=== PATIENT | male | born 1945 | race African-American/Black ===

== ENCOUNTER 2020-05-13 06:47 | Inpatient (IN) | payer OTHER ==
[2020-05-13] MEDS ORDERED: SODIUM CHLORIDE 2,585 ML IV ONE (07:27)
[2020-05-13] MEDS ORDERED: ACETAMINOPHEN 1000 MG/100 ML VIAL (NON FORMULARY) IVPB ONE (07:39)
[2020-05-13] MEDS ORDERED: ACETAMINOPHEN INJECTION 100 ML IVPB ONE (08:10)
[2020-05-13 08:58] LABS: BASO % 0.8 % (0-2.0); HEMATOCRIT 37.5 % (35.4-49); HEMOGLOBIN 12.5 GM/dL (11.7-16.9); MCHC 33.4 g/dl (32.0-35.9); MEAN CELL VOLUME 92.9 fl (80-96); MEAN PLT VOLUME 8.3 fl (7.5-11.1); MONO % 6.6 % (3.8-10.2); NEUT % 87.6 % (42.8-82.8); PLATELET COUNT 469 K/MM3 (134-434); RBC 4.04 M/mm3 (4.00-5.60); RDW 13.3 % (11.9-15.9); WHITE BLOOD COUNT 9.2 K/mm3 (4.0-10.0)
[2020-05-13 09:06] LABS: CHLORIDE 124 mmol/L (98-107); INR 1.45 (0.83-1.09); POTASSIUM 4.9 mmol/L (3.5-5.1); PROTHROMBIN TIME (PATIENT) 17.4 SEC (9.7-13.0); SODIUM 155 mmol/L (136-145)
[2020-05-13 09:09] LABS: ACTIVATED PTT 28.8 SECONDS (25.2-36.5)
[2020-05-13 09:10] LABS: ALBUMIN 3.1 g/dl (3.4-5.0); ANION GAP 9 MMOL/L (8-16); BLOOD UREA NITROGEN 35.5 mg/dL (7-18); CALCIUM 9.1 mg/dL (8.5-10.1); CO2 23 mmol/L (21-32); MAGNESIUM 3.3 mg/dL (1.8-2.4)
[2020-05-13 09:11] LABS: GLUCOSE,RANDOM 333 mg/dL (74-106)
[2020-05-13 09:13] LABS: CREATININE 1.7 mg/dL (0.55-1.3); SGOT/AST 28 U/L (15-37); SGPT/ALT 31 U/L (13-61)
[2020-05-13 09:15] LABS: LDH 493 U/L (87-246); TOT PROT 7.4 g/dl (6.4-8.2)
[2020-05-13] MEDS ORDERED: LACTATED RINGERS SOLUTION 1,000 ML/1,000 ML INFUS.BAG IV SCH ×2 (09:15)
[2020-05-13 09:16] LABS: ALK PHOS 83 U/L (45-117)
[2020-05-13] MEDS ORDERED: DEXAMETHASONE SOD PHOSPHATE 10 MG/1 ML VIAL IVPUSH ONE (10:22)
[2020-05-13] MEDS ORDERED: DEXAMETHASONE SOD PHOSPHATE 10 MG/1 ML VIAL ONE (10:47)
[2020-05-13 12:31] LABS: PH,URINE 5.5 (5.0-8.0); URINE APPEARANCE Clear; URINE BILIRUBIN Negative (NEGATIVE); URINE COLOR Yellow; URINE GLUCOSE (UA) Trace (NEGATIVE); URINE KETONE Trace (NEGATIVE); URINE LEUK ESTERASE Negative (NEGATIVE); URINE NITRITE Negative (NEGATIVE); URINE PROTEIN 2+ (NEGATIVE); URINE UROBILINOGEN 0.2 mg/dL (0.2-1.0)
[2020-05-13 12:56] LABS: EPI CELLS 11.8 /uL (0-25.1); HYALINE CASTS 6.16 /uL (0-3.1); URINE BACTERIA 30.5 /uL (0-1359); URINE RBC 13.3 /uL (0-23.9)
[2020-05-13 12:57] LABS: URINE CRYSTALS FEW /hpf
[2020-05-13] MEDS ORDERED: HEPARIN NA (PORCINE) 5,000 UNITS/ML 1ML VIAL SQ SCH (14:00)
[2020-05-13] MEDS ORDERED: INSULIN SLIDING SCALE (NOVOLOG) 1 VIAL SQ SCH (16:30)
[2020-05-13] MEDS: INSULIN SLIDING SCALE (NOVOLOG) 1 VIAL SQ SCH ×2 (17:49→21:16)
[2020-05-13 18:11] VITALS: BMI 23.0
[2020-05-13] MEDS: SODIUM CHLORIDE 0.45% 1,000 ML IV SCH (19:43)
[2020-05-13] MEDS: ATORVASTATIN CA 10 MG TABLET (FP) PO SCH (21:12)
[2020-05-14 01:19] LABS: POTASSIUM 4.7 mmol/L (3.5-5.1)
[2020-05-14 01:21] LABS: BLOOD UREA NITROGEN 36.1 mg/dL (7-18); CALCIUM 9.1 mg/dL (8.5-10.1)
[2020-05-14 01:25] LABS: CREATININE 1.4 mg/dL (0.55-1.3)
[2020-05-14] MEDS: SODIUM CHLORIDE 0.45% 1,000 ML IV SCH ×2 (02:30→10:23)
[2020-05-14] MEDS: INSULIN SLIDING SCALE (NOVOLOG) 1 VIAL SQ SCH ×4 (06:11→21:56)
[2020-05-14] MEDS ORDERED: INSULIN (NOVOLOG) ASPART 100 UNITS/ML 10ML VIAL ONE (06:37)
[2020-05-14] MEDS ORDERED: ENOXAPARIN NA (PORCINE) 80 MG/0.8 ML DISP.SYRIN SQ ONE (08:00)
[2020-05-14 08:40] LABS: HEMATOCRIT 36.1 % (35.4-49); MCH 30.8 pg (25.7-33.7); MCHC 33.2 g/dl (32.0-35.9); MEAN CELL VOLUME 92.7 fl (80-96); MEAN PLT VOLUME 8.1 fl (7.5-11.1); PLATELET COUNT 384 K/MM3 (134-434); RBC 3.89 M/mm3 (4.00-5.60); RDW 13.2 % (11.9-15.9); WHITE BLOOD COUNT 7.1 K/mm3 (4.0-10.0)
[2020-05-14 08:51] LABS: POTASSIUM 4.5 mmol/L (3.5-5.1)
[2020-05-14 08:53] LABS: ALBUMIN 2.7 g/dl (3.4-5.0); CALCIUM 9.1 mg/dL (8.5-10.1)
[2020-05-14 08:54] LABS: BLOOD UREA NITROGEN 38.7 mg/dL (7-18)
[2020-05-14 08:57] LABS: CREATININE 1.5 mg/dL (0.55-1.3)
[2020-05-14 08:58] LABS: BILIRUBIN,TOTAL 0.7 mg/dL (0.2-1); TOT PROT 6.7 g/dl (6.4-8.2)
[2020-05-14] MEDS ORDERED: amLODIPine BESYLATE 2.5 MG TABLET (FP) PO SCH (10:00)
[2020-05-14] MEDS ORDERED: APIXABAN 2.5 MG TABLET PO SCH (10:00)
[2020-05-14] MEDS ORDERED: amLODIPine BESYLATE 5 MG TABLET (FP) PO SCH (10:00)
[2020-05-14] MEDS ORDERED: PT OWN MED DRAWER 7, Y5N ONE (10:09)
[2020-05-14] MEDS: DEXAMETHASONE SOD PHOSPHATE 4 MG/1 ML VIAL IVPUSH SCH (10:21)
[2020-05-14 11:52] LABS: HEMATOCRIT 36.9 % (35.4-49); HEMOGLOBIN 12.3 GM/dL (11.7-16.9); MCH 31.1 pg (25.7-33.7); MCHC 33.2 g/dl (32.0-35.9); MEAN CELL VOLUME 93.4 fl (80-96); MEAN PLT VOLUME 8.2 fl (7.5-11.1); PLATELET COUNT 399 K/MM3 (134-434); RBC 3.95 M/mm3 (4.00-5.60); RDW 13.2 % (11.9-15.9); WHITE BLOOD COUNT 9.5 K/mm3 (4.0-10.0)
[2020-05-14] MEDS ORDERED: amLODIPine BESYLATE 5 MG TABLET (FP) PO ONE (12:25)
[2020-05-14 16:06] LABS: URINE APPEARANCE CLEAR; URINE BILIRUBIN NEGATIVE (NEGATIVE); URINE COLOR YELLOW; URINE GLUCOSE (UA) 1+ (NEGATIVE); URINE KETONE NEGATIVE (NEGATIVE); URINE LEUK ESTERASE NEGATIVE (NEGATIVE); URINE NITRITE NEGATIVE (NEGATIVE); URINE PROTEIN NEGATIVE (NEGATIVE); URINE UROBILINOGEN 0.2 mg/dL (0.2-1.0)
[2020-05-14] MEDS ORDERED: DEXTROSE 5%-WATER - 1,000 ML IV SCH (18:15)
[2020-05-14] MEDS: DEXTROSE 5%-WATER - 1,000 ML IV SCH (18:55)
[2020-05-14] MEDS: ATORVASTATIN CA 10 MG TABLET (FP) PO SCH (21:56)
[2020-05-15] MEDS: DEXTROSE 5%-WATER - 1,000 ML IV SCH ×3 (05:36→19:27)
[2020-05-15] MEDS: INSULIN SLIDING SCALE (NOVOLOG) 1 VIAL SQ SCH ×4 (06:04→22:14)
[2020-05-15 09:12] LABS: HEMATOCRIT 34.2 % (35.4-49); HEMOGLOBIN 11.2 GM/dL (11.7-16.9); MCH 30.5 pg (25.7-33.7); MCHC 32.7 g/dl (32.0-35.9); MEAN CELL VOLUME 93.3 fl (80-96); MEAN PLT VOLUME 8.2 fl (7.5-11.1); PLATELET COUNT 273 K/MM3 (134-434); RBC 3.66 M/mm3 (4.00-5.60); WHITE BLOOD COUNT 9.5 K/mm3 (4.0-10.0)
[2020-05-15] MEDS: DEXAMETHASONE SOD PHOSPHATE 4 MG/1 ML VIAL IVPUSH SCH (09:18)
[2020-05-15] MEDS: amLODIPine BESYLATE 10 MG TABLET (FP) PO SCH (09:18)
[2020-05-15] MEDS ORDERED: ENOXAPARIN NA (PORCINE) 40 MG/0.4 ML DISP.SYRIN SQ SCH (10:00)
[2020-05-15 10:03] LABS: BLOOD UREA NITROGEN 52.2 mg/dL (7-18)
[2020-05-15 10:05] LABS: CALCIUM 8.5 mg/dL (8.5-10.1)
[2020-05-15 10:07] LABS: CREATININE 2.7 mg/dL (0.55-1.3); PHOSPHOROUS 4.3 mg/dL (2.5-4.9)
[2020-05-15 10:10] LABS: POTASSIUM 4.8 mmol/L (3.5-5.1)
[2020-05-15] MEDS ORDERED: INSULIN (NOVOLOG) ASPART 100 UNITS/ML 10ML VIAL ONE ×2 (11:29→20:06)
[2020-05-15 12:29] LABS: ERYTHROCYTE SEDIMENTATION RATE 38 mm/hr (0-20)
[2020-05-15] MEDS: TAMSULOSIN HCL 0.4 MG CAP PO SCH (20:18)
[2020-05-15] MEDS: APIXABAN 2.5 MG TABLET PO SCH (21:35)
[2020-05-15] MEDS: ATORVASTATIN CA 10 MG TABLET (FP) PO SCH (21:35)
[2020-05-15] MEDS ORDERED: APIXABAN 5 MG TABLET PO SCH (22:00)
[2020-05-16] MEDS: DEXTROSE 5%-WATER - 1,000 ML IV SCH ×2 (03:37→16:06)
[2020-05-16] MEDS: INSULIN SLIDING SCALE (NOVOLOG) 1 VIAL SQ SCH ×4 (06:06→21:05)
[2020-05-16 07:03] LABS: BASO % 0.4 % (0-2.0); EOS % 0.1 % (0-4.5); HEMATOCRIT 36.2 % (35.4-49); HEMOGLOBIN 11.9 GM/dL (11.7-16.9); LYMPH % 3.7 % (8-40); MCH 30.4 pg (25.7-33.7); MCHC 32.8 g/dl (32.0-35.9); MEAN CELL VOLUME 92.7 fl (80-96); MEAN PLT VOLUME 7.9 fl (7.5-11.1); MONO % 5.4 % (3.8-10.2); NEUT % 90.4 % (42.8-82.8); PLATELET COUNT 233 K/MM3 (134-434); RBC 3.91 M/mm3 (4.00-5.60); RDW 13.1 % (11.9-15.9); WHITE BLOOD COUNT 7.1 K/mm3 (4.0-10.0)
[2020-05-16 07:47] LABS: POTASSIUM 4.9 mmol/L (3.5-5.1)
[2020-05-16 07:49] LABS: CALCIUM 8.5 mg/dL (8.5-10.1)
[2020-05-16 07:50] LABS: ALBUMIN 2.6 g/dl (3.4-5.0); BLOOD UREA NITROGEN 37.3 mg/dL (7-18)
[2020-05-16 07:53] LABS: CREATININE 1.4 mg/dL (0.55-1.3)
[2020-05-16 07:54] LABS: BILIRUBIN,TOTAL 0.8 mg/dL (0.2-1); TOT PROT 6.2 g/dl (6.4-8.2)
[2020-05-16] MEDS ORDERED: PT OWN MED DRAWER 7, Y5N ONE (09:11)
[2020-05-16] MEDS: amLODIPine BESYLATE 10 MG TABLET (FP) PO SCH (09:37)
[2020-05-16] MEDS: TAMSULOSIN HCL 0.4 MG CAP PO SCH (09:37)
[2020-05-16] MEDS: DEXAMETHASONE SOD PHOSPHATE 4 MG/1 ML VIAL IVPUSH SCH (09:37)
[2020-05-16] MEDS: APIXABAN 2.5 MG TABLET PO SCH ×2 (09:37→21:06)
[2020-05-16] MEDS: ATORVASTATIN CA 10 MG TABLET (FP) PO SCH (21:06)
[2020-05-17] MEDS: INSULIN SLIDING SCALE (NOVOLOG) 1 VIAL SQ SCH ×4 (06:06→21:56)
[2020-05-17 07:59] LABS: HEMATOCRIT 32.4 % (35.4-49); HEMOGLOBIN 10.9 GM/dL (11.7-16.9); MCH 30.7 pg (25.7-33.7); MCHC 33.8 g/dl (32.0-35.9); MEAN CELL VOLUME 90.8 fl (80-96); MEAN PLT VOLUME 8.4 fl (7.5-11.1); PLATELET COUNT 210 K/MM3 (134-434); RBC 3.56 M/mm3 (4.00-5.60); RDW 12.8 % (11.9-15.9); WHITE BLOOD COUNT 7.7 K/mm3 (4.0-10.0)
[2020-05-17 08:17] LABS: POTASSIUM 4.5 mmol/L (3.5-5.1)
[2020-05-17 08:21] LABS: ALBUMIN 2.4 g/dl (3.4-5.0); BLOOD UREA NITROGEN 36.3 mg/dL (7-18)
[2020-05-17 08:23] LABS: CALCIUM 8.6 mg/dL (8.5-10.1)
[2020-05-17 08:26] LABS: BILIRUBIN,TOTAL 0.8 mg/dL (0.2-1); TOT PROT 5.8 g/dl (6.4-8.2)
[2020-05-17 08:27] LABS: CREATININE 1.2 mg/dL (0.55-1.3)
[2020-05-17] MEDS: TAMSULOSIN HCL 0.4 MG CAP PO SCH (09:30)
[2020-05-17] MEDS: DEXAMETHASONE SOD PHOSPHATE 4 MG/1 ML VIAL IVPUSH SCH (09:30)
[2020-05-17] MEDS: amLODIPine BESYLATE 10 MG TABLET (FP) PO SCH (09:30)
[2020-05-17] MEDS: APIXABAN 2.5 MG TABLET PO SCH ×2 (09:30→21:56)
[2020-05-17] MEDS ORDERED: INSULIN (NOVOLOG) ASPART 100 UNITS/ML 10ML VIAL ONE (11:30)
[2020-05-17] MEDS: ATORVASTATIN CA 10 MG TABLET (FP) PO SCH (21:56)
[2020-05-18] MEDS: INSULIN SLIDING SCALE (NOVOLOG) 1 VIAL SQ SCH ×4 (06:28→21:32)
[2020-05-18 08:22] LABS: EOS % 0.3 % (0-4.5); LYMPH % 6.6 % (8-40); MCH 30.3 pg (25.7-33.7); MCHC 33.4 g/dl (32.0-35.9); MEAN CELL VOLUME 90.6 fl (80-96); MEAN PLT VOLUME 9.2 fl (7.5-11.1); MONO % 6.2 % (3.8-10.2); NEUT % 84.9 % (42.8-82.8); PLATELET COUNT 215 K/MM3 (134-434); RBC 3.64 M/mm3 (4.00-5.60); WHITE BLOOD COUNT 9.5 K/mm3 (4.0-10.0)
[2020-05-18 08:45] LABS: POTASSIUM 4.5 mmol/L (3.5-5.1)
[2020-05-18 08:54] LABS: ALBUMIN 2.6 g/dl (3.4-5.0); BLOOD UREA NITROGEN 32.4 mg/dL (7-18)
[2020-05-18 08:57] LABS: BILIRUBIN,TOTAL 0.8 mg/dL (0.2-1)
[2020-05-18 09:05] LABS: TOT PROT 6.1 g/dl (6.4-8.2)
[2020-05-18 09:23] LABS: ANISOCYTOSIS 0; HELMET CELLS 0; HOWELL-JOLLY BODIES 0; MACROCYTOSIS 0; OVALOCYTE 0; PLATELET ESTIMATE NORMAL; ROULEAU 0; SICKELED CELLS 0; TARGET CELLS 0; TEAR DROP CELLS 0; TOXIC GRANULATION 0
[2020-05-18] MEDS: APIXABAN 2.5 MG TABLET PO SCH ×2 (09:48→21:26)
[2020-05-18] MEDS: amLODIPine BESYLATE 10 MG TABLET (FP) PO SCH (09:48)
[2020-05-18] MEDS: TAMSULOSIN HCL 0.4 MG CAP PO SCH (09:48)
[2020-05-18] MEDS: DEXAMETHASONE SOD PHOSPHATE 4 MG/1 ML VIAL IVPUSH SCH (09:48)
[2020-05-18] MEDS: ATORVASTATIN CA 10 MG TABLET (FP) PO SCH (21:26)
[2020-05-19] MEDS: INSULIN SLIDING SCALE (NOVOLOG) 1 VIAL SQ SCH ×2 (06:17→12:23)
[2020-05-19] MEDS ORDERED: DEXAMETHASONE 4 MG TABLET (FP) PO SCH (10:00)
[2020-05-19] MEDS: amLODIPine BESYLATE 10 MG TABLET (FP) PO SCH (10:07)
[2020-05-19] MEDS: APIXABAN 2.5 MG TABLET PO SCH (10:07)
[2020-05-19] MEDS: TAMSULOSIN HCL 0.4 MG CAP PO SCH (10:07)
[2020-05-19 15:57] VITALS: BP 110/74; PULSE 87; TEMP 97.3
== END 2020-05-19 17:39 | disposition home health service (06) | DRG 178 ==
LOC: JER 06:47 → JERBED 10:07 → J8W 14:58
PROVIDERS: ADMIT Internal Medicine; ATTEND Internal Medicine
DX: U07.1 COVID-19 (principal); E87.0 Hyperosmolality and hypernatremia; N17.9 Acute kidney failure, unspecified; E78.5 Hyperlipidemia, unspecified; Z79.84 Long term (current) use of oral hypoglycemic drugs; E86.0 Dehydration; E11.22 Type 2 diabetes mellitus with diabetic chronic kidney disease; I12.9 Hypertensive chronic kidney disease with stage 1 through stage 4 chronic kidney disease, or unspecified chronic kidney disease; N18.9 Chronic kidney disease, unspecified; R33.9 Retention of urine, unspecified; R63.0 Anorexia; Z68.23 Body mass index [BMI] 23.0-23.9, adult
CPT/HCPCS: 36415; 71045-TC-FY; 71046-TC-FY; 80048; 80053; 81003; 82010; 82550; 82553; 82565; 82728; 82803; 82962; 83036; 83605; 83615; 83735; 84100; 84295; 84300; 84443; 84484; 85025; 85027; 85379; 85610; 85651; 85730; 86140; 86769; 87040; 87086; 87804; 93005; 93010; 93970-TC; 94761; 97116-GP; 97161-GP; 99285-25; C9803; J0131; J1100; U0003

== ENCOUNTER 2020-05-25 15:48 | Inpatient (IN) | payer OTHER ==
[2020-05-25 17:05] LABS: EPI CELLS 11 /uL (0-25.1); HYALINE CASTS 7 /uL (0-3.1); URINE APPEARANCE TURBID; URINE BACTERIA 2205 /uL (0-1359); URINE BILIRUBIN 1+ (NEGATIVE); URINE COLOR ORANGE; URINE GLUCOSE (UA) NEGATIVE (NEGATIVE); URINE KETONE NEGATIVE (NEGATIVE); URINE LEUK ESTERASE 3+ (NEGATIVE); URINE NITRITE POSITIVE (NEGATIVE); URINE PROTEIN 3+ (NEGATIVE); URINE WBC 5163 /uL (0-25.8)
[2020-05-25] MEDS ORDERED: SODIUM CHLORIDE 0.9% 500 ML INFUS.BAG IV ONE (17:08)
[2020-05-25 17:35] LABS: URINE RBC 7257.1 /uL (0-23.9); YEAST NEGATIVE (NEGATIVE)
[2020-05-25] MEDS ORDERED: PIPERACILLIN/TAZOB 3.375 GM 3.375 GM in DEXTROSE 5%-WATER - 50 ML IVPB ONE (17:36)
[2020-05-25 17:43] LABS: BASO % 0.4 % (0-2.0); EOS % 0.4 % (0-4.5); HEMATOCRIT 37.2 % (35.4-49); HEMOGLOBIN 12.5 GM/dL (11.7-16.9); LYMPH % 5.6 % (8-40); MCH 30.7 pg (25.7-33.7); MCHC 33.5 g/dl (32.0-35.9); MEAN CELL VOLUME 91.5 fl (80-96); MEAN PLT VOLUME 8.8 fl (7.5-11.1); MONO % 6.6 % (3.8-10.2); PLATELET COUNT 381 K/MM3 (134-434); RBC 4.07 M/mm3 (4.00-5.60); RDW 13.6 % (11.9-15.9); WHITE BLOOD COUNT 9.8 K/mm3 (4.0-10.0)
[2020-05-25] MEDS ORDERED: LACTATED RINGERS SOLUTION 1000 ML INFUS.BAG IV ONE (17:43)
[2020-05-25 17:50] LABS: INR 1.66 (0.83-1.09); PROTHROMBIN TIME (PATIENT) 20.1 SEC (9.7-13.0)
[2020-05-25 17:53] LABS: ACTIVATED PTT 33.8 SECONDS (25.2-36.5)
[2020-05-25] MEDS ORDERED: VANCOMYCIN 1 GM in D5W (PRE-DOCKED) 1,000 MG/250 ML IVPB ONE (17:55)
[2020-05-25] MEDS ORDERED: PIPERACILLIN/TAZOB 3.375 GM 3.375 GM/50 ML BAG IVPB ONE (17:56)
[2020-05-25 18:21] LABS: POTASSIUM 4.7 mmol/L (3.5-5.1)
[2020-05-25 18:23] LABS: CALCIUM 9.7 mg/dL (8.5-10.1)
[2020-05-25 18:24] LABS: BLOOD UREA NITROGEN 23.3 mg/dL (7-18)
[2020-05-25 18:26] LABS: BILIRUBIN,DIRECT 0.3 mg/dL (0.0-0.2)
[2020-05-25 18:27] LABS: CREATININE 1.4 mg/dL (0.55-1.3); LDH 264 U/L (87-246)
[2020-05-25 18:29] LABS: TOT PROT 6.9 g/dl (6.4-8.2)
[2020-05-25 18:46] LABS: ALBUMIN 3.2 g/dl (3.4-5.0)
[2020-05-25] MEDS ORDERED: VANCOMYCIN 1 GRAM (PRE-DOCKED) 1,000 MG/250 ML BAG IVPB ONE (19:19)
[2020-05-25] MEDS ORDERED: ACETAMINOPHEN 325 MG TABLET (FP) PO PRN (21:06)
[2020-05-25] MEDS ORDERED: MEROPENEM 1 GM in DEXTROSE 5%-WATER 100 ML IVPB ONE (21:09)
[2020-05-25] MEDS ORDERED: ATORVASTATIN CA 10 MG TABLET (FP) ONE (22:12)
[2020-05-25] MEDS ORDERED: MEROPENEM 1 GM VIAL (RESTRICTED TO ID) IVPB ONE (22:12)
[2020-05-25] MEDS: ATORVASTATIN CA 10 MG TABLET (FP) PO SCH (22:27)
[2020-05-25] MEDS: INSULIN SLIDING SCALE (NOVOLOG) 1 VIAL SQ SCH (22:27)
[2020-05-25] MEDS: LACTATED RINGERS SOLUTION 1,000 ML IV SCH (22:27)
[2020-05-26 03:37] VITALS: BMI 23.4
[2020-05-26] MEDS: INSULIN SLIDING SCALE (NOVOLOG) 1 VIAL SQ SCH ×4 (06:13→21:59)
[2020-05-26] MEDS: VANCOMYCIN 1 GM in D5W (PRE-DOCKED) 1,000 MG/250 ML IVPB SCH ×2 (07:47→18:36)
[2020-05-26] MEDS: TAMSULOSIN HCL 0.4 MG CAP PO SCH (08:14)
[2020-05-26 08:38] LABS: BASO % 0.8 % (0-2.0); EOS % 1.7 % (0-4.5); HEMATOCRIT 31.1 % (35.4-49); HEMOGLOBIN 10.6 GM/dL (11.7-16.9); LYMPH % 11.3 % (8-40); MCH 30.6 pg (25.7-33.7); MEAN CELL VOLUME 90.1 fl (80-96); MEAN PLT VOLUME 8.7 fl (7.5-11.1); MONO % 11.2 % (3.8-10.2); PLATELET COUNT 317 K/MM3 (134-434); RBC 3.46 M/mm3 (4.00-5.60); RDW 13.2 % (11.9-15.9); WHITE BLOOD COUNT 6.9 K/mm3 (4.0-10.0)
[2020-05-26 09:10] LABS: POTASSIUM 4.6 mmol/L (3.5-5.1)
[2020-05-26 09:13] LABS: ALBUMIN 2.6 g/dl (3.4-5.0); CALCIUM 9.5 mg/dL (8.5-10.1)
[2020-05-26 09:17] LABS: PHOSPHOROUS 3.2 mg/dL (2.5-4.9)
[2020-05-26 09:18] LABS: TOT PROT 5.3 g/dl (6.4-8.2)
[2020-05-26] MEDS ORDERED: MEROPENEM 1 GM VIAL (RESTRICTED TO ID) IVPB ONE ×2 (09:52→17:02)
[2020-05-26] MEDS ORDERED: DEXTROSE 5%-WATER 100 ML IVPB ONE ×2 (09:52→17:02)
[2020-05-26] MEDS ORDERED: PT OWN MED DRAWER 7, Y5N ONE (09:52)
[2020-05-26] MEDS ORDERED: VANCOMYCIN 1 GM in D5W (PRE-DOCKED) 1,000 MG/250 ML IVPB SCH (10:00)
[2020-05-26] MEDS ORDERED: MEROPENEM 1 GM in DEXTROSE 5%-WATER 100 ML IVPB SCH (10:00)
[2020-05-26] MEDS: amLODIPine BESYLATE 10 MG TABLET (FP) PO SCH (10:12)
[2020-05-26] MEDS: FINASTERIDE 5 MG TABLET (FP) PO SCH (13:19)
[2020-05-26] MEDS: MEROPENEM 1 GM in DEXTROSE 5%-WATER 100 ML IVPB SCH ×2 (13:21→17:14)
[2020-05-26] MEDS: LACTATED RINGERS SOLUTION 1,000 ML IV SCH ×2 (13:43→21:35)
[2020-05-26] MEDS: ATORVASTATIN CA 10 MG TABLET (FP) PO SCH (21:36)
[2020-05-27] MEDS: LACTATED RINGERS SOLUTION 1,000 ML IV SCH ×3 (00:22→21:44)
[2020-05-27] MEDS ORDERED: MEROPENEM 1 GM VIAL (RESTRICTED TO ID) IVPB ONE (01:27)
[2020-05-27] MEDS ORDERED: DEXTROSE 5%-WATER 100 ML IVPB ONE (01:27)
[2020-05-27] MEDS: MEROPENEM 1 GM in DEXTROSE 5%-WATER 100 ML IVPB SCH (01:44)
[2020-05-27] MEDS: INSULIN SLIDING SCALE (NOVOLOG) 1 VIAL SQ SCH ×4 (06:46→21:48)
[2020-05-27] MEDS ORDERED: PIPERACILLIN/TAZOBACTAM 3.375 GM VIAL IVPB ONE ×3 (10:16→23:17)
[2020-05-27] MEDS ORDERED: DEXTROSE 5%-WATER - 50 ML IVPB ONE ×3 (10:16→23:17)
[2020-05-27] MEDS: FINASTERIDE 5 MG TABLET (FP) PO SCH (10:26)
[2020-05-27] MEDS: TAMSULOSIN HCL 0.4 MG CAP PO SCH (10:26)
[2020-05-27] MEDS: amLODIPine BESYLATE 10 MG TABLET (FP) PO SCH (10:26)
[2020-05-27] MEDS: PIPERACILLIN/TAZOB 3.375 GM 3.375 GM in DEXTROSE 5%-WATER - 50 ML IVPB SCH ×2 (10:27→17:02)
[2020-05-27 12:34] LABS: BASO % 0.5 % (0-2.0); EOS % 0.9 % (0-4.5); HEMATOCRIT 31.6 % (35.4-49); HEMOGLOBIN 10.5 GM/dL (11.7-16.9); LYMPH % 6.8 % (8-40); MCH 30.1 pg (25.7-33.7); MCHC 33.1 g/dl (32.0-35.9); MEAN CELL VOLUME 90.8 fl (80-96); MEAN PLT VOLUME 8.8 fl (7.5-11.1); MONO % 7.6 % (3.8-10.2); NEUT % 84.2 % (42.8-82.8); PLATELET COUNT 291 K/MM3 (134-434); RBC 3.48 M/mm3 (4.00-5.60); RDW 13.5 % (11.9-15.9); WHITE BLOOD COUNT 6.8 K/mm3 (4.0-10.0)
[2020-05-27 12:56] LABS: POTASSIUM 4.2 mmol/L (3.5-5.1)
[2020-05-27 13:01] LABS: ALBUMIN 2.5 g/dl (3.4-5.0); BLOOD UREA NITROGEN 12.2 mg/dL (7-18); CALCIUM 8.9 mg/dL (8.5-10.1); MAGNESIUM 1.8 mg/dL (1.8-2.4)
[2020-05-27 13:06] LABS: BILIRUBIN,TOTAL 1.4 mg/dL (0.2-1); TOT PROT 5.6 g/dl (6.4-8.2)
[2020-05-27] MEDS ORDERED: INSULIN (NOVOLOG) ASPART 100 UNITS/ML 10ML VIAL ONE ×2 (21:24→23:17)
[2020-05-27] MEDS: ATORVASTATIN CA 10 MG TABLET (FP) PO SCH (21:43)
[2020-05-28] MEDS: PIPERACILLIN/TAZOB 3.375 GM 3.375 GM in DEXTROSE 5%-WATER - 50 ML IVPB SCH ×3 (01:24→17:49)
[2020-05-28] MEDS: LACTATED RINGERS SOLUTION 1,000 ML IV SCH ×3 (01:41→21:57)
[2020-05-28] MEDS: INSULIN SLIDING SCALE (NOVOLOG) 1 VIAL SQ SCH ×4 (06:08→22:05)
[2020-05-28 07:55] LABS: HEMATOCRIT 29.3 % (35.4-49); MCH 30.6 pg (25.7-33.7); MCHC 34.1 g/dl (32.0-35.9); MEAN CELL VOLUME 89.7 fl (80-96); MEAN PLT VOLUME 8.2 fl (7.5-11.1); PLATELET COUNT 272 K/MM3 (134-434); RBC 3.27 M/mm3 (4.00-5.60); RDW 13.4 % (11.9-15.9); WHITE BLOOD COUNT 4.7 K/mm3 (4.0-10.0)
[2020-05-28 08:14] LABS: POTASSIUM 4.1 mmol/L (3.5-5.1)
[2020-05-28 08:23] LABS: CALCIUM 9.1 mg/dL (8.5-10.1)
[2020-05-28 08:24] LABS: ALBUMIN 2.4 g/dl (3.4-5.0); BLOOD UREA NITROGEN 13.1 mg/dL (7-18); MAGNESIUM 1.9 mg/dL (1.8-2.4)
[2020-05-28 08:27] LABS: CREATININE 1.1 mg/dL (0.55-1.3); PHOSPHOROUS 3.3 mg/dL (2.5-4.9)
[2020-05-28 08:28] LABS: BILIRUBIN,TOTAL 1.3 mg/dL (0.2-1)
[2020-05-28 08:29] LABS: TOT PROT 5.1 g/dl (6.4-8.2)
[2020-05-28] MEDS ORDERED: PIPERACILLIN/TAZOBACTAM 3.375 GM VIAL IVPB ONE ×2 (09:35→17:47)
[2020-05-28] MEDS ORDERED: DEXTROSE 5%-WATER - 50 ML IVPB ONE ×2 (09:35→17:47)
[2020-05-28] MEDS: LOSARTAN POTASSIUM 25 MG TABLET PO SCH (09:58)
[2020-05-28] MEDS: amLODIPine BESYLATE 5 MG TABLET (FP) PO SCH (09:58)
[2020-05-28] MEDS: TAMSULOSIN HCL 0.4 MG CAP PO SCH (09:58)
[2020-05-28] MEDS: FINASTERIDE 5 MG TABLET (FP) PO SCH (09:58)
[2020-05-28] MEDS ORDERED: APIXABAN 5 MG TABLET PO SCH (10:00)
[2020-05-28] MEDS: ATORVASTATIN CA 10 MG TABLET (FP) PO SCH (21:58)
[2020-05-28] MEDS: HEPARIN NA (PORCINE) 5,000 UNITS/ML 1ML VIAL SQ SCH (21:58)
[2020-05-29 01:04] LABS: PH,URINE 5.5 (5.0-8.0); URINE APPEARANCE TURBID; URINE BILIRUBIN NEGATIVE (NEGATIVE); URINE COLOR YELLOW; URINE GLUCOSE (UA) NEGATIVE (NEGATIVE); URINE KETONE NEGATIVE (NEGATIVE); URINE LEUK ESTERASE 2+ (NEGATIVE); URINE NITRITE NEGATIVE (NEGATIVE); URINE PROTEIN NEGATIVE (NEGATIVE)
[2020-05-29] MEDS ORDERED: PIPERACILLIN/TAZOBACTAM 3.375 GM VIAL IVPB ONE ×3 (01:54→16:48)
[2020-05-29] MEDS ORDERED: DEXTROSE 5%-WATER - 50 ML IVPB ONE ×3 (01:54→16:48)
[2020-05-29] MEDS: PIPERACILLIN/TAZOB 3.375 GM 3.375 GM in DEXTROSE 5%-WATER - 50 ML IVPB SCH ×3 (02:03→18:12)
[2020-05-29 05:58] LABS: EPI CELLS 19.3 /uL (0-25.1); HYALINE CASTS 9.24 /uL (0-3.1); URINE RBC 587.8 /uL (0-23.9); URINE WBC 115.4 /uL (0-25.8); YEAST NONE SEEN (NEGATIVE)
[2020-05-29 05:59] LABS: URINE CRYSTALS FEW /hpf
[2020-05-29] MEDS: HEPARIN NA (PORCINE) 5,000 UNITS/ML 1ML VIAL SQ SCH ×3 (05:59→21:21)
[2020-05-29] MEDS: INSULIN SLIDING SCALE (NOVOLOG) 1 VIAL SQ SCH ×4 (06:05→21:30)
[2020-05-29 08:59] LABS: HEMATOCRIT 29.4 % (35.4-49); MCH 30.7 pg (25.7-33.7); MEAN CELL VOLUME 90.1 fl (80-96); MEAN PLT VOLUME 7.8 fl (7.5-11.1); PLATELET COUNT 281 K/MM3 (134-434); RBC 3.27 M/mm3 (4.00-5.60); RDW 13.3 % (11.9-15.9); WHITE BLOOD COUNT 4.1 K/mm3 (4.0-10.0)
[2020-05-29 09:17] LABS: POTASSIUM 4.6 mmol/L (3.5-5.1)
[2020-05-29 09:19] LABS: BLOOD UREA NITROGEN 9.2 mg/dL (7-18); CALCIUM 9.3 mg/dL (8.5-10.1); MAGNESIUM 1.8 mg/dL (1.8-2.4)
[2020-05-29 09:23] LABS: CREATININE 1.1 mg/dL (0.55-1.3); PHOSPHOROUS 3.2 mg/dL (2.5-4.9)
[2020-05-29] MEDS: LOSARTAN POTASSIUM 25 MG TABLET PO SCH (10:03)
[2020-05-29] MEDS: FINASTERIDE 5 MG TABLET (FP) PO SCH (10:03)
[2020-05-29] MEDS: TAMSULOSIN HCL 0.4 MG CAP PO SCH (10:03)
[2020-05-29] MEDS: amLODIPine BESYLATE 5 MG TABLET (FP) PO SCH (10:04)
[2020-05-29] MEDS ORDERED: INSULIN (NOVOLOG) ASPART 100 UNITS/ML 10ML VIAL ONE (20:49)
[2020-05-29] MEDS: ATORVASTATIN CA 10 MG TABLET (FP) PO SCH (21:21)
[2020-05-30] MEDS ORDERED: DEXTROSE 5%-WATER - 50 ML IVPB ONE ×3 (01:14→15:57)
[2020-05-30] MEDS ORDERED: PIPERACILLIN/TAZOBACTAM 3.375 GM VIAL IVPB ONE ×3 (01:14→15:57)
[2020-05-30] MEDS: PIPERACILLIN/TAZOB 3.375 GM 3.375 GM in DEXTROSE 5%-WATER - 50 ML IVPB SCH ×3 (01:33→17:00)
[2020-05-30] MEDS: HEPARIN NA (PORCINE) 5,000 UNITS/ML 1ML VIAL SQ SCH ×3 (06:05→21:39)
[2020-05-30] MEDS: INSULIN SLIDING SCALE (NOVOLOG) 1 VIAL SQ SCH ×4 (06:11→21:50)
[2020-05-30] MEDS: FINASTERIDE 5 MG TABLET (FP) PO SCH (09:18)
[2020-05-30] MEDS: amLODIPine BESYLATE 5 MG TABLET (FP) PO SCH (09:18)
[2020-05-30] MEDS: TAMSULOSIN HCL 0.4 MG CAP PO SCH (09:18)
[2020-05-30] MEDS: LOSARTAN POTASSIUM 25 MG TABLET PO SCH (09:18)
[2020-05-30 10:33] LABS: HEMATOCRIT 28.2 % (35.4-49); HEMOGLOBIN 9.3 GM/dL (11.7-16.9); MCH 30.3 pg (25.7-33.7); MCHC 33.1 g/dl (32.0-35.9); MEAN CELL VOLUME 91.6 fl (80-96); MEAN PLT VOLUME 8.8 fl (7.5-11.1); PLATELET COUNT 257 K/MM3 (134-434); RBC 3.08 M/mm3 (4.00-5.60); RDW 14.2 % (11.9-15.9); WHITE BLOOD COUNT 4.5 K/mm3 (4.0-10.0)
[2020-05-30 10:56] LABS: POTASSIUM 3.9 mmol/L (3.5-5.1)
[2020-05-30 11:00] LABS: CALCIUM 9.1 mg/dL (8.5-10.1)
[2020-05-30 11:01] LABS: BLOOD UREA NITROGEN 11.8 mg/dL (7-18); MAGNESIUM 1.9 mg/dL (1.8-2.4)
[2020-05-30 11:04] LABS: PHOSPHOROUS 2.8 mg/dL (2.5-4.9)
[2020-05-30] MEDS: ATORVASTATIN CA 10 MG TABLET (FP) PO SCH (21:39)
[2020-05-31] MEDS ORDERED: DEXTROSE 5%-WATER - 50 ML IVPB ONE ×3 (01:51→17:14)
[2020-05-31] MEDS ORDERED: PIPERACILLIN/TAZOBACTAM 3.375 GM VIAL IVPB ONE ×3 (01:51→17:14)
[2020-05-31] MEDS: PIPERACILLIN/TAZOB 3.375 GM 3.375 GM in DEXTROSE 5%-WATER - 50 ML IVPB SCH ×3 (01:54→17:50)
[2020-05-31] MEDS: HEPARIN NA (PORCINE) 5,000 UNITS/ML 1ML VIAL SQ SCH ×3 (05:11→21:55)
[2020-05-31] MEDS: INSULIN SLIDING SCALE (NOVOLOG) 1 VIAL SQ SCH ×4 (06:16→21:55)
[2020-05-31 08:34] LABS: HEMATOCRIT 27.6 % (35.4-49); HEMOGLOBIN 9.4 GM/dL (11.7-16.9); MCH 30.7 pg (25.7-33.7); MCHC 33.8 g/dl (32.0-35.9); MEAN CELL VOLUME 90.8 fl (80-96); MEAN PLT VOLUME 8.4 fl (7.5-11.1); PLATELET COUNT 240 K/MM3 (134-434); RBC 3.05 M/mm3 (4.00-5.60); WHITE BLOOD COUNT 4.6 K/mm3 (4.0-10.0)
[2020-05-31] MEDS: FINASTERIDE 5 MG TABLET (FP) PO SCH (09:02)
[2020-05-31] MEDS: LOSARTAN POTASSIUM 25 MG TABLET PO SCH (09:02)
[2020-05-31] MEDS: TAMSULOSIN HCL 0.4 MG CAP PO SCH (09:03)
[2020-05-31] MEDS: amLODIPine BESYLATE 5 MG TABLET (FP) PO SCH (09:03)
[2020-05-31 09:17] LABS: BLOOD UREA NITROGEN 10.5 mg/dL (7-18); CALCIUM 9.4 mg/dL (8.5-10.1); CREATININE 1.1 mg/dL (0.55-1.3); MAGNESIUM 1.9 mg/dL (1.8-2.4); PHOSPHOROUS 3.1 mg/dL (2.5-4.9); POTASSIUM 3.6 mmol/L (3.5-5.1)
[2020-05-31] MEDS ORDERED: INSULIN (NOVOLOG) ASPART 100 UNITS/ML 10ML VIAL ONE (21:23)
[2020-05-31] MEDS: ATORVASTATIN CA 10 MG TABLET (FP) PO SCH (21:55)
[2020-06-01] MEDS ORDERED: PIPERACILLIN/TAZOBACTAM 3.375 GM VIAL IVPB ONE ×3 (01:44→15:27)
[2020-06-01] MEDS ORDERED: DEXTROSE 5%-WATER - 50 ML IVPB ONE ×3 (01:45→15:28)
[2020-06-01] MEDS: PIPERACILLIN/TAZOB 3.375 GM 3.375 GM in DEXTROSE 5%-WATER - 50 ML IVPB SCH ×2 (01:55→10:32)
[2020-06-01] MEDS: HEPARIN NA (PORCINE) 5,000 UNITS/ML 1ML VIAL SQ SCH ×2 (06:05→15:36)
[2020-06-01] MEDS: INSULIN SLIDING SCALE (NOVOLOG) 1 VIAL SQ SCH ×3 (07:05→19:10)
[2020-06-01] MEDS: TAMSULOSIN HCL 0.4 MG CAP PO SCH (08:10)
[2020-06-01] MEDS: amLODIPine BESYLATE 5 MG TABLET (FP) PO SCH (10:33)
[2020-06-01] MEDS: LOSARTAN POTASSIUM 25 MG TABLET PO SCH (10:33)
[2020-06-01] MEDS: FINASTERIDE 5 MG TABLET (FP) PO SCH (10:33)
[2020-06-01] MEDS ORDERED: INSULIN (NOVOLOG) ASPART 100 UNITS/ML 10ML VIAL ONE (11:22)
[2020-06-01 15:54] VITALS: BP 128/66; PULSE 91; TEMP 98.8
[2020-06-01] MEDS ORDERED: PIPERACILLIN/TAZOB 3.375 GM 3.375 GM in DEXTROSE 5%-WATER - 50 ML IVPB ONE (16:00)
== END 2020-06-01 21:15 | disposition home health service (06) | DRG 699 ==
LOC: JER 15:48 → JERBED 17:19 → J8W 05-26 03:05
PROVIDERS: ADMIT Internal Medicine; ATTEND Internal Medicine
DX: T83.098A Other mechanical complication of other urinary catheter, initial encounter (principal); N39.0 Urinary tract infection, site not specified; N17.9 Acute kidney failure, unspecified; E87.0 Hyperosmolality and hypernatremia; E11.9 Type 2 diabetes mellitus without complications; R31.0 Gross hematuria; E78.5 Hyperlipidemia, unspecified; E86.0 Dehydration; I10 Essential (primary) hypertension; R33.9 Retention of urine, unspecified; Y83.9 Surgical procedure, unspecified as the cause of abnormal reaction of the patient, or of later complication, without mention of misadventure at the time of the procedure; N40.0 Benign prostatic hyperplasia without lower urinary tract symptoms
CPT/HCPCS: 36415; 71045-TC-FY; 76775-TC; 76856-TC; 80048; 80053; 81003; 82248; 82550; 82553; 82565; 82728; 82962; 83605; 83615; 83735; 83935; 84100; 84300; 84484; 85025; 85027; 85379; 85610; 85730; 86140; 86850; 86900; 86901; 87040; 87086; 87186; 93005; 93010; 97116-GP; 97161-GP; 99285-25; C9803; J1644; U0003